=== PATIENT | female | born 1960 | race Caucasian/White ===

== ENCOUNTER → 2017-02-28 | Outpatient (CLI) | payer BC ==
[~2017-02-28] MED LIST: ALBUTEROL 90MCG PO; ASPI325T4 PO; B12 PO; BACI1TAB3 PO; FEXO180T61 PO; LISI1TAB6 PO; OMEGA 3 PO; QVAR INHALATION; [UNRECOGNIZED DRUG - OTHER] PO
--- NOTE | 2017-02-28 15:02 | RADRPT ---
PROCEDURE: Left knee radiographs. CLINICAL INDICATION: Left knee pain. TECHNIQUE: Three views. Frontal, lateral, and patellar view. COMPARISON: No prior studies are available for comparison. FINDINGS: There is no fracture or dislocation. The soft tissues are normal. Articular surfaces are intact. There is no lytic or blastic lesion. There is no radiopaque foreign body. IMPRESSION: 1. Normal images of the left knee. RPTAT: QQ .Chauncey Fuentes MD, MD Date Time Electronically viewed and signed by .Chauncey Fuentes MD, on 02/28/2017 15:02 .R/
== END | disposition home or self-care (01) ==
LOC: RAD 11:34
PROVIDERS: ATTEND Internal Medicine
DX: M25.562 Pain in left knee (principal)
CPT/HCPCS: 73562

== ENCOUNTER → 2017-03-15 | Outpatient (CLI) | payer BC ==
--- NOTE | 2017-03-21 06:22 | HKNOTE ---
DATE OF SERVICE: 03/15/2017 REFERRING PHYSICIAN: Dr. Roland Ochoa, [address] [facility], [address], [place] [address]. CHIEF COMPLAINT: Pain in the left knee. HISTORY OF CHIEF COMPLAINT: The patient is a 56-year-old female who developed pain in the left knee about 2 half months ago. There is no history of injury to the knee. She admits that she may have had mild pain in the knee on and off before that, but the main problem started about 2-1/2 months ago. The patient complains the pain is on the medial and posterior aspect of the knee. Pain varies between moderate to severe. She gets pain with every step that she takes. The pain is aggravated by walking, weightbearing, and stair climbing. Occasionally, the knee feels unstable. She is not sure if it locks. She believes that it swells. She does limp some of the time. She does not have a shoe lift. She is able to wiggle her toes and tie her shoelaces. She does get mild rest pain and night pain. She takes aspirin and tramadol for the pain. Cold packs seem to help more than anything else. She occasionally gets pain in the lower back. She has never had an MRI scan of the lumbar spine. No numbness or tingling in the legs. PAST ORTHOPEDIC HISTORY, PREVIOUS ORTHOPEDIC OPERATIONS: None. PRIOR CORTISONE INTAKE: None. ALCOHOL INTAKE: None. 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 PRIOR INJURIES TO HIPS AND KNEES: None. 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 PAST MEDICAL HISTORY: 1. Mild hypertension. 2. Aortic valve stenosis. 3. Asthma (subsided after valve replacement surgery). PAST SURGICAL HISTORY: Appendectomy 2000. Aortic valve [place] in [address] Ram. FAMILY HISTORY: Father , unstated age, of a stroke. Mother , unstated age, of diabetes. SYSTEMS REVIEW: No chest pain since her heart surgery. Varicose veins. Gait disturbance due to the knee pain. Hypertension. HABITS: The patient does not smoke. She drinks an occasional alcoholic beverage, "when I am on holiday." DISTRIBUTION SYSTEMS SERVICEPERSON: Dr. Roland Ochoa. PHYSICAL EXAMINATION: GENERAL: The patient is a fit looking, pleasant, youthful, 56- year-old female. VITAL SIGNS: Height 5 foot 5. Weight 180 pounds. Blood pressure 135/60, temperature 98.9. The patient's gait is slightly antalgic. She walks without a walking aid. DIRECTED PHYSICAL EXAMINATION: Both hips have a full range of motion without pain. Examination of the left knee, extension is full. Flexion is to 130 degrees without pain. 1+ effusion. 2+ crepitus in the knee and 2+ crepitus on the patella. Imaging of the left knee obtained in the [facility] today were reviewed. It showed moderate narrowing of the medial joint space with subchondral sclerosis. The rest of the knee looks normal. No osteophytes and no subchondral sclerosis. DIAGNOSES: 1. 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 2. Mild hypertension. 3. History of aortic valve stenosis. 4. History of cardiac valve surgery. 5. History of asthmatic symptoms (? related to the aortic stenosis). 6. Allergic to erythromycin. MEDICATIONS: 1. Metoprolol twice a day. 2. Aspirin 81 mg once a day. 3. Lisinopril 5 mg once a day. 4. Rylee 180 mg once a day. 5. [place]-3 fatty acids once a day. 6. Vitamin D3 once a day. 7. Probiotic once a day. 8. Vitamin B12 once a day. 9. Tramadol 50 mg as needed (short-term prescription). 10. ProAir for asthmatic symptoms. MANAGEMENT: 1. The patient has mild/moderate degenerative change in her left knee. She has not had a proper conservative care for her knee. 2. She was advised that she could expect the arthritis to progress. Eventually, she will need to have a knee replacement operation. 3. Under sterile conditions, she was given injection of 2 mL of Kenalog and 6 mL of 2 percent lidocaine into the left knee. 4. She will be seen again as necessary for further evaluation and treatment. Dictated By: Shmuel Morales MD /[email or web address]/[email or web address] /Document#: [id number]
--- NOTE | 2017-03-21 08:24 | HKNOTE ---
DATE OF SERVICE: 03/15/2017 Dear Roland, Thank you for referring Thu Patrick whom I have seen today complaining of pain in her left knee. She has moderate degenerative osteoarthritis of the knee and will eventually need to have a knee replacement. 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 She is given a cortisone injection into the knee. She can return every 3-4 months as needed for repeat injections if she gets improvement. If not, then we will try viscosupplementation. Thank you for your confidence and continued referrals. With warmest regards. Dictated By: Shmuel Morales MD /[email or web address]/[email or web address] /Document#: [id number] ; Dr. Roland Ochoa
== END | disposition home or self-care (01) ==
LOC: HKI 13:56
DX: M17.12 Unilateral primary osteoarthritis, left knee (principal)
CPT/HCPCS: 20610; G0463